=== PATIENT | male | born 1965 | race Caucasian/White ===

== ENCOUNTER 2023-09-01 07:50 | Outpatient (CLI) | payer BC ==
--- NOTE | 2023-09-01 13:04 | MRI Report ---
PROCEDURE: LUMBAR SPINE WO INDICATIONS: LEFT SIDE SCIATICA TECHNIQUE: Noncontrast sagittal T1 spin echo and T2 fast echo, sagittal STIR, axial T1 and T2 fast spin echo thr ough the lumbar spine. In cases with scoliosis, additional coronal T2 fast spin echo may be performe d. COMPARISON: None. FINDINGS: Image quality: Excellent. Alignment and Curvature: There is normal bony alignment. Bone Marrow: Marrow is of normal overall signal. No acute vertebral body compression fractures. Spinal Cord: Conus medullaris terminates at the L1 level. Visualized cord demonstrates normal signa l and size. Paraspinous Soft Tissues: No paravertebral masses. T12-L1: Normal in appearance. L1-L2: Normal in appearance. L2-L3: Mild disc bulge. No canal stenosis or foraminal stenosis. L3: Large free disc fragment in the left lateral recess. L3-L4: There is a very large extruded disc fragment, superior to the L3-L4 disc space, in the left lateral recess, behind the L3 vertebral body. It measures approximately 2.3 x 1.5 x 0.9 cm, and oblit erates the left L3 nerve root in the left lateral recess and severely narrows the left side of the ca nal. At the level of the disc, there is disc bulge and mild facet and ligament hypertrophy. There is mild central canal stenosis. There is mild bilateral foraminal stenosis. L4-L5: Disc bulge. Facet hypertrophy. Mild canal stenosis. Mild bilateral foraminal stenosis. L5-S1: Minimal disc bulge. Facet hypertrophy. No canal stenosis or foraminal stenosis. IMPRESSION: 1. A very large free disc fragment behind the L3 vertebral body in the left lateral recess, likely em anating from L3-L4, obliterates the left L3 nerve root in the left lateral recess and severely narrow s the left side of the canal. 2. Underlying lower lumbar facet arthropathy. 3. Canal stenosis is mild at L3-L4 and L4-L5. Reviewed by: Ruy Singletary MD on 09/01/2023 1:03 PM PST Approved by: Ruy Singletary MD on 09/01/2023 1:03 PM PST Station ID: [id number]
== END 2023-09-01 07:51 | disposition home or self-care (01) ==
LOC: DI 07:50
PROVIDERS: ATTEND Physician Assistant Medical
DX: M47.816 Spondylosis without myelopathy or radiculopathy, lumbar region (principal); M48.061 Spinal stenosis, lumbar region without neurogenic claudication; M51.26 Other intervertebral disc displacement, lumbar region

== ENCOUNTER 2024-06-02 10:07 | Outpatient (CLI) | payer BC ==
--- NOTE | 2024-06-02 11:11 | Sleep Patient Instructions ---
Sleep Center Visit Summary - Patient Visit Information Reason for Visit: Initial consult for evaluation of sleep disordered breathing and other sleep issues. - Patient Instructions Instructions Attached: Sleep Study, Sleep Study Home Monitor Additional Instructions: You will be completing a sleep study, either an in-lab polysomnography (PSG) or home sleep study (HST). You will follow-up in the sleep care office after the sleep study is completed to hear the results and talk about therapy, if needed. You will be called by our office staff to schedule this appointment, but you may contact us with any questions. - Clinic Information Contact: [facility] [address] [place] [id number] [email or web address] T: [phone]
--- NOTE | 2024-06-02 11:15 | SLEEP CARE CONSULTATION ---
Information from patient questionnaire entered by Nick Green. I have reviewed and concur with the information entered by Nick Green. This document represents the service I personally performed and the decisions made by me, Stephanie Landrum ARNP. History of Present Illness Service Date and Time: 06/02/2024 1007 Reason for Visit: New patient Chief Complaint: reports: Insomnia, Excessive daytime sleepiness, Fatigue, Frequent awakenings at night, Other (HEADACHES) Date of Onset: FOREVER Usual bedtime: 2230 Time it takes to fall asleep: 5-10MINS Snores at night: Yes Observed to quit breathing while asleep: No Sleeps alone due to snoring: No Number of times waking at night: VERY FREQUENTLY Reasons for waking at night: reports: Bathroom, Other (UNKNOWN). denies: Choking, Gasping for air Toss, Turn, or Twitch while sleeping: Yes Recalls having dreams: No (very infrequent dreams) Usually gets out of bed at: 0545--1100 Feels refreshed in the morning: No Morning headache: Yes (2 times a week, resolves without meds about mid morning) Sleepy or fatigued during the day: Yes Ever fallen asleep while driving: Yes (drowsy driving but no accidents; nothing recent) Takes day naps: No Prior sleep studies: No Additional HPI information: I had the pleasure of seeing WEN DICKSON today regarding the possibility of him having a sleep disorder. His current complaints are excessive daytime sleepiness, fatigue, frequent night awakenings, insomnia and headaches. He is working with PA who felt he needed evaluation and possible treatment. 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 He does not feel he is sleeping well and is fatigues. He feels his memory is being affected. He does not wake up feeling refreshed. He has a Ouraring which shows multiple wake ups at night. He does find himself moving his feet to go back to sleep. He does sometimes have difficulty falling asleep when stressed about work, etc. 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 Patient is and lives in [place]. Have you smoked in the past 12 months: No Alcohol use: Yes Alcohol amount and frequency: 4-5 2 DAYS WEEK Caffeine use: Yes Caffeine amount and frequency: 2-4 DAY Family History Family history of sleep disordered breathing: No Allergies and Home Medications Known drug allergies: Yes ( LISTED ) Drug allergies reviewed: Yes Home medication list reviewed: Yes (as listed) Allergy and home medication list: Allergies amoxicillin Allergy (Verified 06/02/24 10:24) Home Medications Losartan [Cozaar] See Rx Instructions .ROUTE .COMPLEX 06/02/24 [History] Metoprolol Succinate [Toprol Xl] See Rx Instructions .ROUTE .COMPLEX 06/02/24 [History] amLODIPine [Norvasc] See Rx Instructions .ROUTE .COMPLEX 06/02/24 [History] buPROPion [Wellbutrin Sr] See Rx Instructions .ROUTE .COMPLEX 06/02/24 [History] hydroCHLOROthiazide [Hydrochlorothiazide] See Rx Instructions .ROUTE .COMPLEX 06/02/24 [History] Review of Systems Cardiovascular: reports: high blood pressure Gastrointestinal: denies: heartburn Neurological: reports: headaches. denies: head trauma Psychiatric: reports: anxiety Ear/Nose/Throat: denies: tonsillectomy Musculoskeletal: reports: back pain Physical Exam Vital signs obtained and entered by: NICK Hernandez MA Blood Pressure: 137/96 (RIGHT ARM) Cuff size: long Heart Rate: 98 O2 Saturation: 98 Height: 5 ft 7.5 in Weight: 187 lb 3.2 oz Body Mass Index: 28.8 BMI Classification: Overweight Neck circumference: 16.25 Nostrils: patent to airflow Mouth and throat: narrow oropharynx Soft palate: long Hard palate: normal Uvula: normal Uvula visualization: 25% Mallampati Class III Tongue: enlarged in size with teeth giordano on lateral edges Tonsils: small Neck: normal w/o lymphadenopathy or thyromegaly Heart: regular rate and rhythm Lungs: clear bilaterally Impression and Plan 1. Suspected Obstructive Sleep Apnea-Hypopnea Syndrome, as suggested by a history of loud and irregular snoring, morning headache, frequent awakening during the night, unrefreshed sleep, cognitive impairment, and excessive daytime sleepiness. Narrow oropharynx and obesity are common predisposing factors for obstructive sleep apnea-hypopnea syndrome. I recommend proceeding to polysomnography to confirm the diagnosis and to assess severity. If the patient has significant sleep disordered breathing, a manual CPAP titration study will also be performed to find the optimal treatment pressure. I informed the patient of what the sleep studies involve and after some discussion, obtained agreement to proceed. The pathophysiology of obstructive sleep apnea-hypopnea syndrome was discussed with the patient and health risks of cardiovascular and cerebrovascular disease if not treated. 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 Patient agreed to plan. * Schedule polysomnography * Avoid long distance driving or driving when feeling sleepy. * Avoid alcohol, sedative and muscle relaxant around bedtime. * Attempt to lose weight. * Review instructions provided by trained office staff on how to prepare for the sleep study. * Return for follow-up after sleep study completed. Counseling Topics: Weight loss health impact Plan: sleep study and followup Visit Type: In Office Time Spent with Patient (minutes): 30 Provider Statement: I spent 100% of the Face to Face Visit with the patient with greater than 50% spent counseling the patient and coordination of care.
[2024-06-02 11:20] VITALS: BP 137/96; O2SAT 98
== END 2024-06-02 10:08 | disposition home or self-care (01) ==
LOC: SC 10:07
PROVIDERS: ATTEND Nurse Practitioner Family
DX: G47.10 Hypersomnia, unspecified (principal); R06.83 Snoring; R51.9 Headache, unspecified; G47.8 Other sleep disorders; R41.89 Other symptoms and signs involving cognitive functions and awareness; R53.83 Other fatigue; G47.00 Insomnia, unspecified; E66.3 Overweight; Z68.28 Body mass index [BMI] 28.0-28.9, adult
CPT/HCPCS: 99203; 99212